=== PATIENT | female | born 1950 | race Caucasian/White ===

== ENCOUNTER 2020-07-26 19:49 | Inpatient (IN) | payer MEDICARE ==
--- NOTE | 2020-07-26 20:03 | ER Document Report ---
ED General - General Chief Complaint: Breathing Difficulty Stated Complaint: DIFFICULTY BREATHING Time Seen by Provider: 07/26/20 20:01 Mode of Arrival: Medic Information source: Emergency Med Personnel - [facility] Notes: 70-year-old female arrives via EMS for shortness of breath. Information is primarily provided by EMS given patient's respiratory status. About 6 to 8 weeks ago patient had a bronchoscopy done in [place], apparently was supposed to be a 45-minute procedure however it ended up taking 5 hours. She was discharged home that day. EMS came out to her house that night for shortness of breath and she was subsequently intubated, she was admitted to the ICU in [facility], [place]. Call tonight was for shortness of breath with minimal exertion, she was noted to have desaturations when attempting to stand. She was found to be 80% on 5 L of home O2, it is unsure how much oxygen she is supposed to be on. Had reported a cough productive of green/yellow sputum. Apparently the family does not let any visitors into the house and none of them have Covid to EMS his knowledge. EMS found her to be tachypneic, rhonchi, wheezing, minimal air movement. She was started on CPAP with 10 of PEEP, saturations increased to 92%, she was administered 2 DuoNeb's and 125 mg Solu-Medrol. - Related Data Allergies/Adverse Reactions: No Known Allergies Allergy (Unverified 07/26/20 23:53) Past Medical History - General Information source: Emergency Med Personnel - Social History Smoking Status: Unknown if Ever Smoked Family History: Other - Unable to assess at this time Review of Systems - Review of Systems -: Yes ROS unobtainable due to patient's medical condition Cardiovascular: denies: Chest pain Gastrointestinal: denies: Abdominal pain Physical Exam - Vital signs Vitals: Resp Pulse Ox 22 H 97 07/26/20 19:50 07/26/20 19:50 - General In distress: Moderate - HEENT Head: Normocephalic, Atraumatic Extraocular movements intact: Yes - Left ideation Pupils: PERRL - Respiratory Respiratory status: Labored, Tachypnea Breath sounds: Rales - Diffuse - Cardiovascular Rhythm: Regular Heart sounds: Normal auscultation Pulses: Normal: Radial, Dorsalis pedis Normal capillary refill: Yes - Abdominal Inspection: Obese Tenderness: Nontender - Extremities General lower extremity: Edema - 3+ pitting edema bilaterally - Neurological Neuro grossly intact: Yes Notes: Face is symmetric, able to raise eyebrows equally, tongue protrudes midline. Left eye deviation. Follows commands. Strength 5/5 in the upper extremities, very strong handgrip. Strength 5/5 in the lower extremities. Sensation grossly intact to all extremities. - Psychological Associated symptoms: Normal mood - Skin Skin Temperature: Warm Course - Re-evaluation Re-evalutation: 70-year-old female with history of COPD arrives via EMS for respiratory distress. She was found tachypneic and hypoxic on 5 L of oxygen, she was initiated on positive pressure with improvement in her saturations. On exam patient is still tachypneic, she has diffuse rales, respiratory at bedside has been continued on BiPAP, tolerating 14/7 with 50% FiO2, no hypoxia here. Apparently had recent bronchoscopy, patient has never been in our system before. I am highly suspicious of volume overload given her pulmonary exam and generali zed pitting edema to her lower extremities, will start with 80 mg Lasix, chest x-ray reviewed at bedside and does appear to have pulmonary edema. Less likely primary COPD exacerbation at this time, though it could be contributing, possible CO2 retention given mental status, will check VBG. 07/26/20 20:59 Received a call from radiology wanting to make sure that I read the chest x-ray report as there is concern for a left lobe mass 07/26/20 22:17 Minimal leukocytosis. Anemia, chronic appearing, no baseline available. VBG with evidence of respiratory acidosis, some compensation. Electrolytes okay, bicarb elevated. Creatinine within normal limits. BNP is elevated and a slight troponin leak, correlates with physical exam findings. No elevation of LFTs to suggest hepatic congestion. I went in to update patient. She is more alert and comfortable appearing, she reports she is feeling better. She denies a previous history of CHF. She states this left upper lobe mass is what she had the bronchoscopy poor, she reports to her knowledge she was told everything was okay. She has already had 400cc urine output in response to Lasix 07/26/20 22:32 Called transfer center at [facility], at max capacity so would not be able to take patient in transfer. We were able to review her admission there in the ICU, admitted on May 28. She was diagnosed with acute on chronic respiratory f ailure with hypoxia and hypercapnia, RON, MAT, anemia of chronic disease. She apparently only had a chest x-ray done which showed left greater than right upper lobe infiltrates. Was discharged home on 3 L nasal cannula. 07/26/20 22:39 Called in [place] in order to obtain bronchoscopy results, scheduling representative is not at his desk but will be able to do this shortly 07/26/20 23:41 Bronchoscopy report received from [place], performed on 05/27. Was done because she had a persistent left upper lung infiltrate that was not responding to antibiotics. 5 transbronchial biopsies were obtained. Per the report biopsies were negative for atypia or malignancy, negative for mycobacteria and fungal org anisms. 07/27/20 00:[address] Carlson for admission 07/27/20 00:26 pCO2 and pH have improved following BiPAP - Vital Signs Vital signs: Temp Pulse Resp BP Pulse Ox 98.0 F 17 113/83 98 07/26/20 23:51 07/27/20 00:01 07/27/20 00:00 07/27/20 00:01 - Laboratory Result Diagrams: 07/26/20 21:00 07/26/20 21:00 Laboratory results interpreted by me: 07/26/20 07/26/20 07/26/20 21:00 21:00 21:00 WBC 13.2 H RBC 3.69 L Hgb 8.8 L Hct 29.2 L MCV 79 L MCH 23.9 L MCHC 30.3 L RDW 17.6 H Seg Neuts % (Manual) 95 H Lymphocytes % (Manual) 3 L Monocytes % (Manual) 2 L Abs Neuts (Manual) 12.5 H Abs Lymphs (Manual) 0.4 L VBG pH VBG pCO2 VBG HCO3 Chloride 94 L Carbon Dioxide 38 H Est GFR (MDRD) Non-Af 49 L Glucose 151 H Phosphorus 4.6 H NT-Pro-B Natriuret Pep 2670 H 07/26/20 07/26/20 21:00 23:35 WBC RBC Hgb Hct MCV MCH MCHC RDW Seg Neuts % (Manual) Lymphocytes % (Manual) Monocytes % (Manual) Abs Neuts (Manual) Abs Lymphs (Manual) VBG pH 7.20 L 7.25 L VBG pCO2 98.1 H* 84.1 H* VBG HCO3 37.3 H 36.2 H Chloride Carbon Dioxide Est GFR (MDRD) Non-Af Glucose Phosphorus NT-Pro-B Natriuret Pep - Diagnostic Test Radiology reviewed: Image reviewed, Reports reviewed Discharge - Discharge Clinical Impression: Acute and chronic respiratory failure with hypercapnia, Chronic anemia CHF, acute Qualifiers: Heart failure type: unspecified Qualified Code(s): I50.9 - Heart failure, unspecified Disposition: ADMITTED INPATIENT Unit Admitted: [facility]
[2020-07-26] MEDS ORDERED: FUROSEMIDE INJ/PF 20 MG/2 ML SDV IV ONE (20:04)
--- NOTE | 2020-07-26 20:53 | RADIOLOGY REPORT (SQ) ---
EXAM DESCRIPTION: XR CHEST 1 VIEW COMPLETED DATE/TME: 07/26/2020 20:11 CLINICAL HISTORY: 70 years, Female, SOB COMPARISON: None. NUMBER OF VIEWS: 1 TECHNIQUE: Portable AP upright view of the chest was obtained at 8:05 PM LIMITATIONS: None. FINDINGS: Heart size is top normal for technique. There is mild pleural effusion or thickening lateral right lower chest. There is also mild basilar atelectasis or infiltration, greater on the right. Additionally, there is focal hazy attenuation in the left suprahilar region with some adjacent pleural tenting. There is no pneumothorax. No definite acute bony abnormality is seen. IMPRESSION: Right pleural fluid or thickening and mild basilar atelectasis or infiltration. There is also nonspecific opacity in the left suprahilar region with some adjacent pleural tenting which could be due to scarring although underlying mass is not excluded. Additional evaluation with chest CT is recommended. copyright 2010 [employer]- All Rights Reserved
[2020-07-26 21:17] LABS: VENOUS BLOOD BASE EXCESS 6.9 mmol/L; VENOUS BLOOD HCO3 37.3 mmol/L (20-32); VENOUS BLOOD PH 7.2 (7.30-7.42)
[2020-07-26 21:20] LABS: VENOUS BLOOD PCO2 98.1 mmHg (35-63)
[2020-07-26 21:21] LABS: HEMATOCRIT 29.2 % (36.0-47.0); HEMOGLOBIN 8.8 g/dL (12.0-15.5); MEAN CORPUSCULAR HEMOGLOBIN 23.9 pg (27.0-33.4); MEAN CORPUSCULAR HGB CONC 30.3 g/dL (32.0-36.0); MEAN CORPUSCULAR VOLUME 79 fl (80-97); PLATELET COUNT 231 10^3/uL (150-450); RED BLOOD COUNT 3.69 10^6/uL (3.72-5.28); RED CELL DISTRIBUTION WIDTH 17.6 % (11.5-14.0); WHITE BLOOD COUNT 13.2 10^3/uL (4.0-10.5)
[2020-07-26 21:30] LABS: ALBUMIN 4.2 g/dL (3.5-5.0)
[2020-07-26 21:36] LABS: ABSOLUTE LYMPHOCYTES# (MANUAL) 0.4 10^3/uL (0.5-4.7); ABSOLUTE MONOCYTES # (MANUAL) 0.3 10^3/uL (0.1-1.4); BASOPHILS % (MANUAL) 0 % (0-2); EOSINOPHILS % (MANUAL) 0 % (0-6); LYMPHOCYTES % (MANUAL) 3 % (13-45); MONOCYTES % (MANUAL) 2 % (3-13); SEGMENTED NEUTROPHILS % (MAN) 95 % (42-78); TOTAL CELLS COUNTED 100
[2020-07-26 21:39] LABS: ANISOCYTOSIS SLIGHT; HYPOCHROMASIA SLIGHT; OVALOCYTES SLIGHT; PLATELET COMMENT ADEQUATE; POIKILOCYTOSIS SLIGHT
[2020-07-26 21:45] LABS: ALKALINE PHOSPHATASE 82 U/L (38-126); ANION GAP 8 (5-19); ASPARTATE AMINO TRANSFERASE 18 U/L (14-36); BILIRUBIN,DIRECT 0.2 mg/dL (0.0-0.4); BILIRUBIN,TOTAL 0.8 mg/dL (0.2-1.3); BLOOD UREA NITROGEN 19 mg/dL (7-20); CALCIUM 9.3 mg/dL (8.4-10.2); CARBON DIOXIDE 38 mmol/L (22-30); CHLORIDE 94 mmol/L (98-107); GLUCOSE 151 mg/dL (75-110); PHOSPHORUS 4.6 mg/dL (2.5-4.5); POTASSIUM 4.6 mmol/L (3.6-5.0); TOTAL PROTEIN 6.7 g/dL (6.3-8.2); TROPONIN I 0.016 ng/mL
--- NOTE | 2020-07-26 22:55 | EKG REPORT ---
SEVERITY:- ABNORMAL ECG - SINUS TACHYCARDIA SUPRAVENTRICULAR BIGEMINY PROBABLE LEFT ATRIAL ABNORMALITY LEFT ANTERIOR FASCICULAR BLOCK BORDERLINE T ABNORMALITIES, ANT-LAT LEADS : Confirmed by: Flakito Madison 26-Jul-2020 22:54:22
[2020-07-26 22:56] LABS: APPEARANCE,URINE SLIGHTLY-CLOUDY; BILIRUBIN,URINE NEGATIVE (NEGATIVE); COLOR,URINE YELLOW; GLUCOSE, URINE NEGATIVE (NEGATIVE); KETONES,URINE NEGATIVE (NEGATIVE); LEUKOCYTE ESTERASE,URINE NEGATIVE (NEGATIVE); NITRITE,URINE NEGATIVE (NEGATIVE); PROTEIN,URINE NEGATIVE (NEGATIVE); UROBILINOGEN,URINE NEGATIVE mg/dL (<2.0)
[2020-07-27 00:02] LABS: VENOUS BLOOD BASE EXCESS 7.3 mmol/L; VENOUS BLOOD HCO3 36.2 mmol/L (20-32); VENOUS BLOOD PH 7.25 (7.30-7.42)
[2020-07-27 00:15] LABS: VENOUS BLOOD PCO2 84.1 mmHg (35-63)
--- NOTE | 2020-07-27 01:29 | PDOC H&P ---
History of Present Illness Admission Date/PCP: 07/27/20 00:41 Patient complains of: Shortness of breath History of Present Illness: SHAWN GARCÍA is a 70 year old female with a history of COPD on home oxygen and left lung mass for which she has undergone extensive work-up and was told that it was negative for malignant process now presents via EMS with a 1 day duration of worsening shortness of breath. Patient also states that she has been having cough productive of yellowish sputum for the past few days. She was found to be saturating at 80% by EMS while on 5 L intranasal oxygen. She denies chest pain, dizziness, palpitation, weakness of extremities, fall, nausea, vomiting, abdominal pain or diarrhea. She denies any recent sick contact history. On arrival at ER patient was saturating around mid 80s and she was immediately placed on BiPAP after which her saturation improved to mid 90s and she was given steroid and breathing treatment. Past Medical History Cardiac Medical History: Reports: Congestive Heart Failure Pulmonary Medical History: Reports: Chronic Obstructive Pulmonary Disease (COPD) Social History Information Source: Patient Lives with: Alone Smoking Status: Unknown if Ever Smoked Hx Recreational Drug Use: No Drugs: None - Advance Directive Resuscitation Status: Full Code Family History Family History: Other - Unable to assess at this time Parental Family History Reviewed: Yes Children Family History Reviewed: Yes Sibling(s) Family History Reviewed.: Yes Medication/Allergy Allergies/Adverse Reactions: No Known Allergies Allergy (Unverified 07/26/20 23:53) Review of Systems Constitutional: PRESENT: as per HPI, fatigue. ABSENT: anorexia, chills, fever(s), weight gain, weight loss Eyes: ABSENT: visual disturbances Ears: ABSENT: hearing changes Nose, Mouth, and Throat: ABSENT: as per HPI, headache(s), mouth pain, sore throat, vertigo, other Cardiovascular: PRESENT: as per HPI Respiratory: PRESENT: as per HPI Gastrointestinal: ABSENT: abdominal pain, constipation, diarrhea, hematemesis, hematochezia, nausea, vomiting Genitourinary: ABSENT: dysuria, hematuria Musculoskeletal: ABSENT: joint swelling Integumentary: ABSENT: rash, wounds Neurological: ABSENT: abnormal speech, confusion, dizziness, focal weakness, syncope Psychiatric: ABSENT: anxiety, depression, homidical ideation, suicidal ideation Endocrine: ABSENT: cold intolerance, heat intolerance, polydipsia, polyuria Hematologic/Lymphatic: ABSENT: easy bleeding, easy bruising Physical Exam Vital Signs: Temp Pulse Resp BP Pulse Ox 98.0 F 16 113/83 98 07/26/20 23:51 07/27/20 00:55 07/27/20 00:00 07/27/20 00:55 Additional comments: GENERAL APPEARANCE: Alert and oriented x3, currently on a BiPAP, in no distress HEENT: Normocephalic and atraumatic. No scleral icterus. NECK: Supple. No JVD CHEST: Symmetric. Nontender to palpation. LUNGS: Distantly heard breath sounds, has faint scattered wheezes bilaterally HEART: Regular rate and rhythm with normal S1 and S2. No murmurs, gallops, or rubs. ABDOMEN: Flat, soft, active bowel sounds, no direct or rebound tenderness. No organomegaly detected. No CVA tenderness EXTREMITIES: No cyanosis, clubbing, or edema. MUSCULOSKELETAL: No deformity, atrophy or swelling noted PSYCHIATRIC: The patient is awake, alert, and oriented x3. Recent and remote memory is intact. Appropriate mood and affect. SKIN: Warm, dry, and well perfused. No lesions or rashes are noted. NEUROLOGIC: No focal sensory or motor deficits are noted. Results Laboratory Results: 07/26/20 21:00 07/26/20 21:00 07/26/20 07/26/20 07/26/20 21:00 21:00 21:00 WBC 13.2 H RBC 3.69 L Hgb 8.8 L Hct 29.2 L MCV 79 L MCH 23.9 L MCHC 30.3 L RDW 17.6 H Plt Count 231 Seg Neutrophils % Not Reportable VBG pH 7.20 L VBG pCO2 98.1 H* VBG HCO3 37.3 H VBG Base Excess 6.9 Sodium 140.2 Potassium 4.6 Chloride 94 L Carbon Dioxide 38 H Anion Gap 8 BUN 19 Creatinine 1.09 Est GFR ( Amer) > 60 Glucose 151 H Calcium 9.3 Phosphorus 4.6 H Magnesium 2.3 Total Bilirubin 0.8 AST 18 Alkaline Phosphatase 82 Total Protein 6.7 Albumin 4.2 Urine Color Urine Appearance Urine pH Ur Specific [place] Urine Protein Urine Glucose (UA) Urine Ketones Urine Blood Urine Nitrite Ur Leukocyte Esterase Urine WBC (Auto) Urine RBC (Auto) 07/26/20 07/26/20 22:01 23:35 WBC RBC Hgb Hct MCV MCH MCHC RDW Plt Count Seg Neutrophils % VBG pH 7.25 L VBG pCO2 84.1 H* VBG HCO3 36.2 H VBG Base Excess 7.3 Sodium Potassium Chloride Carbon Dioxide Anion Gap BUN Creatinine Est GFR ( Amer) Glucose Calcium Phosphorus Magnesium Total Bilirubin AST Alkaline Phosphatase Total Protein Albumin Urine Color YELLOW Urine Appearance SLIGHTLY-CLOUDY Urine pH 5.0 Ur Specific [place] 1.010 Urine Protein NEGATIVE Urine Glucose (UA) NEGATIVE Urine Ketones NEGATIVE Urine Blood NEGATIVE Urine Nitrite NEGATIVE Ur Leukocyte Esterase NEGATIVE Urine WBC (Auto) 0 Urine RBC (Auto) 0 07/26/20 21:00 Troponin I 0.016 NT-Pro-B Natriuret Pep 2670 H Impressions: Chest X-Ray 07/26/20 20:01 IMPRESSION: Right pleural fluid or thickening and mild basilar atelectasis or infiltration. There is also nonspecific opacity in the left suprahilar region with some adjacent pleural tenting which could be due to scarring although underlying mass is not excluded. Additional evaluation with chest CT is recommended. copyright 2011 [employer]- All Rights Reserved Assessment and Plan - Diagnosis (1) Acute and chronic respiratory failure with hypercapnia Is this a current diagnosis for this admission?: Yes Plan: Presented with shortness of breath Was hypoxic on 5 L intranasal oxygen Likely due to COPD exacerbation VBG: pH 7.20, PCO2 98 Currently on BiPAP with a setting of: FiO2/IPAP/EPAP/RR=> 40%/08/22/14 Continue breathing treatment Started on prednisone 40 mg p.o. daily Levaquin 750 mg p.o. daily Closely monitor respiratory parameters Repeat ABG in 2 hours after initiation of BiPAP (2) COPD exacerbation Is this a current diagnosis for this admission?: Yes Plan: Currently present with shortness of breath and desaturation to 80% on 5 L Chest x-ray showed no previously known mass on the left perihilar area Has mild leukocytosis Continue breathing treatment with DuoNeb Started on prednisone 40 mg, Levaquin 750 mg daily Currently on the BiPAP and will transition to intranasal oxygen as tolerated (3) Mass of left lung Is this a current diagnosis for this admission?: Yes Plan: Has been extensively worked up Bronchoscopy report obtained ED no sign of malignancy on the biopsy Continue follow-up with outpatient pulmonology (4) Leukocytosis Is this a current diagnosis for this admission?: Yes Plan: Likely due to possible pneumonia Currently on p.o. Levaquin (5) Chronic anemia Is this a current diagnosis for this admission?: Yes Plan: Continue monitoring H&H - Time Time Spent with patient: 35 or more minutes Total Critical Time (Minutes): 40 Medications reviewed and adjusted accordingly: Yes Anticipated Discharge Disposition: Home with Home Health Anticipated Discharge Timeframe: within 48 hours - Inpatient Certification Based on my medical assessment, after consideration of the patient's comorbidities, presenting symptoms, or acuity I expect that the services needed warrant INPATIENT care.: Yes I certify that my determination is in accordance with my understanding of Medicare's requirements for reasonable and necessary INPATIENT services [42 CFR 412.3e].: Yes Medical Necessity: Significant Comorbidiites Make Outpatient Treatment Too Risky, Need Close Monitoring Due to Risk of Patient Decompensation, Risk of Complication if Not Cared For in Hospital Post Hospital Care: D/C or Transfer Summary
[2020-07-27] MEDS: LEVOFLOXACIN 750 MG TABLET PO SCH ×2 (02:29→22:32)
[2020-07-27] MEDS: PREDNISONE 20 MG TABLET PO SCH ×2 (02:29→09:42)
[2020-07-27] MEDS: IPRATROPIUM/ALBUTEROL 0.5-2.5 MG/3 ML AMPUL NEB SCH ×5 (06:50→20:17)
[2020-07-27] MEDS: FAMOTIDINE 20 MG TABLET PO SCH ×2 (09:42→22:33)
[2020-07-27] MEDS: ENOXAPARIN SODIUM INJ 40 MG/0.4 ML DISP.SYRIN SUBCUT SCH (09:42)
--- NOTE | 2020-07-27 12:27 | RADIOLOGY REPORT (SQ) ---
EXAM DESCRIPTION: CT CHEST WITH IMAGES COMPLETED DATE/TIME: 07/27/2020 10:33 am REASON FOR STUDY: lung mass on chest radiograph. No history of lung cancer. COMPARISON: Chest radiograph, 07/26/2020. TECHNIQUE: CT scan of the chest performed using helical scanning technique with dynamic intravenous contrast injection. Images reviewed with lung, soft tissue and bone windows. Reconstructed coronal and sagittal MPR and MIP images reviewed. All images stored on PACS. All CT scanners at this facility use dose modulation, iterative reconstruction, and/or weight based d osing when appropriate to reduce radiation dose to as low as reasonably achievable (ALARA). [facility]: Dose Right [facility]: CareDose [facility]: Dose Right [facility]: Teradose 4D [facility]: ISBX CONTRAST TYPE AND DOSE: contrast/concentration: Isovue 350.00 mmol/ml; Total Contrast Delivered: 76. 8 ml; Total Saline Delivered: 20.0 ml RENAL FUNCTION: GFR > 60. RADIATION DOSE: CT Rad equipment meets quality standard of care and radiation dose reduction techniq ues were employed. CTDIvol: 18.3 mGy. DLP: 785 mGy-cm. . LIMITATIONS: None. FINDINGS: LUNGS AND PLEURA: The trachea has normal caliber and appearance. There is mild bronchial wall thickening in the lower lobes bilaterally. No bronchiectasis. Background moderate pulmonary em physema. Small bilateral pleural effusions with compressive atelectasis at the lung bases. In the l eft upper lobe, there is a 4.9 x 3.4 cm masslike consolidation with associated pleural tethering and fluid in the fissure. 7 mm solid nodule right lower lobe (image 60). No pneumothorax. HILAR AND MEDIASTINAL STRUCTURES: There are enlarged mediastinal lymph nodes, for example a precarina l node measuring 1.9 x 1.3 cm. No definite hilar adenopathy. Esophagus is unremarkable. HEART AND VASCULAR STRUCTURES: No aneurysm or dissection. No central pulmonary emboli. No pericardi al effusion. Moderate coronary artery atherosclerosis. HARDWARE: None in the chest. UPPER ABDOMEN: No significant findings. Limited exam. THYROID AND OTHER SOFT TISSUES: Enlarged thyroid with substernal lobe extending along the right trach ea with a dominant 3.3 x 2.4 cm hypodense nodule. There is a surgical clip adjacent to the right thy roid lobe, possibly from previous surgical resection. No chest wall mass. BONES: No significant finding. OTHER: No other significant finding. IMPRESSION: 1. Masslike consolidation in the left upper lobe may be infectious/inflammatory in the appropriate cl inical setting, however cannot exclude neoplasm. A follow-up CT of the chest in 4- 6 weeks is recomm ended to confirm complete resolution. 2. Small bilateral pleural effusions. 3. Prominent mediastinal lymph nodes may be reactive or neoplastic. These also can be re-evaluated o n follow-up imaging. 4. Background moderate pulmonary emphysema. 5. Enlarged right thyroid lobe with retrosternal component. Dominant retrosternal nodule. Consider correlation with dedicated thyroid ultrasound. TECHNICAL DOCUMENTATION: JOB ID: [id number] Quality ID # [id number]: Final reports with documentation of one or more dose reduction techniques (e.g., Au tomated exposure control, adjustment of the mA and/or kV according to patient size, use of iterative reconstruction technique) 2010 [employer]- All Rights Reserved Reading location - IP/workstation name: [email or web address]
[2020-07-27] MEDS: HYDRALAZINE HCL 25 MG TABLET PO SCH ×2 (15:20→22:33)
[2020-07-27] MEDS ORDERED: (PENDING PHARMACY ID) (Budesonide/Formoterol Fumarate 1 PUFF) IH SCH (18:00)
--- NOTE | 2020-07-27 21:07 | PDOC PROGRESS REPORT ---
Subjective Date:: 07/27/20 Subjective:: SHAWN GARCÍA is a 70 year old female with a history of COPD on home oxygen and left lung mass for which she has undergone extensive work-up and was told that it was negative for malignant process now presents via EMS with a 1 day duration of worsening shortness of breath. Patient also states that she has been having cough productive of yellowish sputum for the past few days. She was found to be saturating at 80% by EMS while on 5 L intranasal oxygen. She denies chest pain, dizziness, palpitation, weakness of extremities, fall, nausea, vomiting, abdominal pain or diarrhea. She denies any recent sick contact history. On arrival at ER patient was saturating around mid 80s and she was immediately placed on BiPAP after which her saturation improved to mid 90s and she was given steroid and breathing treatment. 07/27/20 Patient was seen and examined at bedside. She was taken off BiPAP and is tolerating just being on nasal cannula at 4 L/min saturating 96%. I have instructed the nurse to lower down her oxygen to maintain saturation been 89 to 92%. Nurse station was contacted by her surveyor hydrographic office and requested that we do a CT chest. CT chest showed masslike consolidation in the left upper lobe which may be infectious. Cannot exclude neoplasm. Small bilateral pleural effusion. Prominent mediastinal lymph nodes may be reactive or neoplastic. He is currently receiving prednisone 40 p.o. daily, Levaqjuliana [place] for COPD exacerbation. Reason For Visit: ACUTE ON CHRONIC HYPOXIC AND HYPERCAPNIC RESPIRATO Physical Exam Vital Signs: Temp Pulse Resp BP Pulse Ox 97.9 F 104 H 22 H 132/71 H 99 07/27/20 19:34 07/27/20 19:34 07/27/20 19:34 07/27/20 19:34 07/27/20 19:34 Intake & Output 07/26/20 07/27/20 07/28/20 06:59 06:59 06:59 Output Total 2225 700 Balance -2225 -700 Weight 117.2 kg General appearance: PRESENT: cooperative, mild distress Head exam: PRESENT: atraumatic, normocephalic Eye exam: PRESENT: EOMI, PERRLA Mouth exam: PRESENT: moist Neck exam: PRESENT: full ROM Respiratory exam: PRESENT: decreased breath sounds, symmetrical, unlabored Cardiovascular exam: PRESENT: RRR, +S1, +S2 Pulses: PRESENT: normal radial pulses GI/Abdominal exam: PRESENT: normal bowel sounds, soft. ABSENT: rebound, tenderness Extremities exam: PRESENT: full ROM Musculoskeletal exam: PRESENT: full ROM Neurological exam: PRESENT: alert, awake, oriented to person, oriented to place Psychiatric exam: PRESENT: normal mood Skin exam: PRESENT: normal color Results Laboratory Results: 07/26/20 21:00 07/26/20 21:00 07/26/20 07/26/20 07/26/20 21:00 21:00 21:00 WBC 13.2 H RBC 3.69 L Hgb 8.8 L Hct 29.2 L MCV 79 L MCH 23.9 L MCHC 30.3 L RDW 17.6 H Plt Count 231 Seg Neutrophils % Not Reportable VBG pH 7.20 L VBG pCO2 98.1 H* VBG HCO3 37.3 H VBG Base Excess 6.9 Sodium 140.2 Potassium 4.6 Chloride 94 L Carbon Dioxide 38 H Anion Gap 8 BUN 19 Creatinine 1.09 Est GFR ( Amer) > 60 Glucose 151 H Calcium 9.3 Phosphorus 4.6 H Magnesium 2.3 Total Bilirubin 0.8 AST 18 Alkaline Phosphatase 82 Total Protein 6.7 Albumin 4.2 Urine Color Urine Appearance Urine pH Ur Specific [place] Urine Protein Urine Glucose (UA) Urine Ketones Urine Blood Urine Nitrite Ur Leukocyte Esterase Urine WBC (Auto) Urine RBC (Auto) 07/26/20 07/26/20 22:01 23:35 WBC RBC Hgb Hct MCV MCH MCHC RDW Plt Count Seg Neutrophils % VBG pH 7.25 L VBG pCO2 84.1 H* VBG HCO3 36.2 H VBG Base Excess 7.3 Sodium Potassium Chloride Carbon Dioxide Anion Gap BUN Creatinine Est GFR ( Amer) Glucose Calcium Phosphorus Magnesium Total Bilirubin AST Alkaline Phosphatase Total Protein Albumin Urine Color YELLOW Urine Appearance SLIGHTLY-CLOUDY Urine pH 5.0 Ur Specific [place] 1.010 Urine Protein NEGATIVE Urine Glucose (UA) NEGATIVE Urine Ketones NEGATIVE Urine Blood NEGATIVE Urine Nitrite NEGATIVE Ur Leukocyte Esterase NEGATIVE Urine WBC (Auto) 0 Urine RBC (Auto) 0 07/26/20 21:00 Troponin I 0.016 NT-Pro-B Natriuret Pep 2670 H Impressions: Chest X-Ray 07/26/20 20:01 IMPRESSION: Right pleural fluid or thickening and mild basilar atelectasis or infiltration. There is also nonspecific opacity in the left suprahilar region with some adjacent pleural tenting which could be due to scarring although underlying mass is not excluded. Additional evaluation with chest CT is recommended. copyright 2011 [employer]- All Rights Reserved Chest CT 07/27/20 00:00 IMPRESSION: 1. Masslike consolidation in the left upper lobe may be infectious/inflammatory in the appropriate clinical setting, however cannot exclude neoplasm. A follow- up CT of the chest in 4- 6 weeks is recommended to confirm complete resolution. 2. Small bilateral pleural effusions. 3. Prominent mediastinal lymph nodes may be reactive or neoplastic. These also can be re-evaluated on follow-up imaging. 4. Background moderate pulmonary emphysema. 5. Enlarged right thyroid lobe with retrosternal component. Dominant retrosternal nodule. Consider correlation with dedicated thyroid ultrasound. Assessment and Plan - Diagnosis (1) Acute and chronic respiratory failure with hypercapnia Is this a current diagnosis for this admission?: Yes Plan: Presented with shortness of breath Was hypoxic on 5 L intranasal oxygen Likely due to COPD exacerbation Currently on BiPAP with a setting of: FiO2/IPAP/EPAP/RR=> 40%/08/22/14 Continue DuoNeb on prednisone 40 mg p.o. daily to complete 5 days Levaquin 750 mg p.o. daily Closely monitor respiratory parameters Continue BiPAP at night and as needed (3) COPD exacerbation Is this a current diagnosis for this admission?: Yes Plan: Currently present with shortness of breath and desaturation to 80% on 5 L Chest x-ray showed no previously known mass on the left perihilar area Has mild leukocytosis Continue breathing treatment with DuoNeb Started on prednisone 40 mg, Levaquin 750 mg daily Currently on the BiPAP and will transition to intranasal oxygen as tolerated (4) Chronic anemia Is this a current diagnosis for this admission?: Yes Plan: Continue monitoring H&H (5) Mass of left lung Is this a current diagnosis for this admission?: Yes Plan: Has been extensively worked up Bronchoscopy report obtained ED no sign of malignancy on the biopsy Repeat CT chest masslike consolidation in the upper lobe infectio us/inflammatory, small bilateral pleural effusion, prominent mediastinal lymph nodes may be reactive or neoplastic Continue follow-up with outpatient pulmonology - Time Time Spent with patient: 25-34 minutes Medications reviewed and adjusted accordingly: Yes Anticipated Discharge Disposition: Home, Self Care Anticipated Discharge Timeframe: within 48 hours
[2020-07-27] MEDS ORDERED: LORAZEPAM INJ 2 MG/1 ML VIAL IV ONE (22:45)
[2020-07-28] MEDS: IPRATROPIUM/ALBUTEROL 0.5-2.5 MG/3 ML AMPUL NEB SCH ×3 (00:13→09:01)
[2020-07-28 06:51] LABS: ARTERIAL BLOOD BASE EXCESS 12.9 mmol/L; ARTERIAL BLOOD HCO3 40.6 mmol/L (20-24); ARTERIAL BLOOD PH 7.38 (7.35-7.45); ARTERIAL BLOOD PO2 163.2 mmHg (80-100); ARTERIAL BLOOD TOTAL CO2 42.8 mmol/L (21-25)
[2020-07-28 06:52] LABS: ARTERIAL BLOOD FIO2 40%
[2020-07-28 06:53] LABS: ARTERIAL BLOOD PCO2 69.9 mmHg (35-45)
[2020-07-28 07:16] LABS: ABSOLUTE LYMPHOCYTES (AUTO) 0.6 10^3/uL (0.5-4.7); ABSOLUTE MONOCYTES (AUTO) 0.9 10^3/uL (0.1-1.4); ABSOLUTE NEUT (AUTO) 7.9 10^3/uL (1.7-8.2); BASOPHILS % (AUTO) 0.1 % (0-2); EOSINOPHILS % (AUTO) 0.1 % (0-6); HEMATOCRIT 24.8 % (36.0-47.0); HEMOGLOBIN 8.1 g/dL (12.0-15.5); LYMPHOCYTES % (AUTO) 6.2 % (13-45); MEAN CORPUSCULAR HEMOGLOBIN 24.8 pg (27.0-33.4); MEAN CORPUSCULAR HGB CONC 32.8 g/dL (32.0-36.0); MEAN CORPUSCULAR VOLUME 76 fl (80-97); MONOCYTES % (AUTO) 9.7 % (3-13); PLATELET COUNT 211 10^3/uL (150-450); RED BLOOD COUNT 3.28 10^6/uL (3.72-5.28); RED CELL DISTRIBUTION WIDTH 17.2 % (11.5-14.0); SEGMENTED NEUTROPHILS % (AUTO) 83.9 % (42-78); TOTAL CELLS COUNTED % (AUTO) 100 %; WHITE BLOOD COUNT 9.4 10^3/uL (4.0-10.5)
[2020-07-28 07:38] LABS: ALBUMIN 3.5 g/dL (3.5-5.0); ALKALINE PHOSPHATASE 65 U/L (38-126); ASPARTATE AMINO TRANSFERASE 21 U/L (14-36); BILIRUBIN,DIRECT 0.3 mg/dL (0.0-0.4); BILIRUBIN,TOTAL 0.6 mg/dL (0.2-1.3); BLOOD UREA NITROGEN 28 mg/dL (7-20); CALCIUM 9.2 mg/dL (8.4-10.2); CHLORIDE 91 mmol/L (98-107); GLUCOSE 98 mg/dL (75-110); POTASSIUM 4.7 mmol/L (3.6-5.0); TOTAL PROTEIN 5.7 g/dL (6.3-8.2)
[2020-07-28 07:44] LABS: ANION GAP 10 (5-19); CARBON DIOXIDE 35 mmol/L (22-30)
[2020-07-28] MEDS: ESCITALOPRAM OXALATE 10 MG TABLET PO SCH (09:30)
[2020-07-28] MEDS: POTASSIUM CHLORIDE 10 MEQ TABLET.ER PO SCH (09:31)
[2020-07-28] MEDS: MONTELUKAST SODIUM 10 MG TABLET PO SCH (09:31)
[2020-07-28] MEDS: PREDNISONE 20 MG TABLET PO SCH (09:31)
[2020-07-28] MEDS: FUROSEMIDE 20 MG TABLET PO SCH (09:31)
[2020-07-28] MEDS: ENOXAPARIN SODIUM INJ 40 MG/0.4 ML DISP.SYRIN SUBCUT SCH (09:31)
[2020-07-28] MEDS: FAMOTIDINE 20 MG TABLET PO SCH ×2 (09:31→22:17)
[2020-07-28] MEDS: HYDRALAZINE HCL 25 MG TABLET PO SCH ×2 (09:31→22:17)
[2020-07-28] MEDS: FLUTICASONE/VILANTEROL 100-25 MCG/DOSE IH SCH (09:32)
[2020-07-28] MEDS: UMECLIDINIUM BROMIDE 62.5 MCG/DOSE IH SCH (09:32)
[2020-07-28] MEDS ORDERED: (PENDING PHARMACY ID) (Tiotropium Bromide [Spiriva Handihaler 5 Cap/Kit (18 Mcg/Cap)] 1 CA IH SCH (10:00)
[2020-07-28] MEDS: IPRATROPIUM/ALBUTEROL 0.5-2.5 MG/3 ML AMPUL NEB PRN (13:16)
--- NOTE | 2020-07-28 16:39 | PDOC PROGRESS REPORT ---
Subjective Date:: 07/28/20 Subjective:: SHAWN GARCÍA is a 70 year old female with a history of COPD on home oxygen and left lung mass for which she has undergone extensive work-up and was told that it was negative for malignant process now presents via EMS with a 1 day duration of worsening shortness of breath. Patient also states that she has been having cough productive of yellowish sputum for the past few days. She was found to be saturating at 80% by EMS while on 5 L intranasal oxygen. She denies chest pain, dizziness, palpitation, weakness of extremities, fall, nausea, vomiting, abdominal pain or diarrhea. She denies any recent sick contact history. On arrival at ER patient was saturating around mid 80s and she was immediately placed on BiPAP after which her saturation improved to mid 90s and she was given steroid and breathing treatment. 07/27/20 Patient was seen and examined at bedside. She was taken off BiPAP and is tolerating just being on nasal cannula at 4 L/min saturating 96%. I have instructed the nurse to lower down her oxygen to maintain saturation been 89 to 92%. Nurse station was contacted by her applications sales representative office and requested that we do a CT chest. CT chest showed masslike consolidation in the left upper lobe which may be infectious. Cannot exclude neoplasm. Small bilateral pleural effusion. Prominent mediastinal lymph nodes may be reactive or neoplastic. He is currently receiving prednisone 40 p.o. daily, Levaquin, duo nebs for COPD exacerbation. 07/28/20 Patient was seen and examined at bedside. She is mostly off BiPAP only using it at night. She reports that her breathing is much better today compared to yesterday. She is exhibiting side effects of DuoNeb nebulization so I have change it to as needed. She denies any fever chest pain palpitations. I have spoken to her niece Praveen regarding her frequent admissions due to respiratory compromise from her COPD as well as her lung mass. According to her niece the applications sales representative was still highly suspicious that her lung mass is cancerous despite a negative biopsy. However given her very poor lung function due to her COPD they were told that another biopsy and even treatment if it is in fact cancer will be more harmful than helpful in her case. I was able to discuss with her as well that given her degree of morbidity it is very likely that pursuing treatment for a lung cancer will not be beneficial. Jacqueline informed me that apparently the patient's is very reluctant to accept her life limiting illness which is why I think a palliative consult will be very helpful in her case. I have put in a consult for palliative. Reason For Visit: ACUTE ON CHRONIC HYPOXIC AND HYPERCAPNIC RESPIRATO Physical Exam Vital Signs: Temp Pulse Resp BP Pulse Ox 97.9 F 106 H 18 153/71 H 99 07/28/20 12:57 07/28/20 14:00 07/28/20 13:10 07/28/20 12:57 07/28/20 13:10 Intake & Output 07/27/20 07/28/20 07/29/20 06:59 06:59 06:59 Output Total 2225 1025 Balance -2225 -1025 Weight 117.2 kg 124.2 kg General appearance: PRESENT: cooperative, mild distress, obese Head exam: PRESENT: atraumatic, normocephalic Eye exam: PRESENT: EOMI, PERRLA Mouth exam: PRESENT: moist Neck exam: PRESENT: full ROM Respiratory exam: PRESENT: decreased breath sounds, symmetrical, tachypnea, wheezes Cardiovascular exam: PRESENT: RRR, +S1, +S2 Pulses: PRESENT: normal radial pulses GI/Abdominal exam: PRESENT: normal bowel sounds, soft. ABSENT: rebound, tende rness Extremities exam: PRESENT: full ROM Musculoskeletal exam: PRESENT: full ROM Neurological exam: PRESENT: alert, awake, oriented to person, oriented to place, oriented to time Psychiatric exam: PRESENT: normal mood Skin exam: PRESENT: normal color Results Laboratory Results: 07/28/20 06:41 07/28/20 06:41 07/28/20 07/28/20 07/28/20 06:15 06:41 06:41 WBC 9.4 RBC 3.28 L Hgb 8.1 L Hct 24.8 L MCV 76 L MCH 24.8 L MCHC 32.8 RDW 17.2 H Plt Count 211 Seg Neutrophils % 83.9 H Carbonic Acid 2.10 H HCO3/H2CO3 Ratio 19:1 ABG pH 7.38 ABG pCO2 69.9 H* ABG pO2 163.2 H ABG HCO3 40.6 H ABG O2 Saturation 99.0 H ABG Base Excess 12.9 FiO2 40% Sodium 136.2 L Potassium 4.7 Chloride 91 L Carbon Dioxide 35 H Anion Gap 10 BUN 28 H Creatinine 1.12 Est GFR ( Amer) 58 L Glucose 98 Calcium 9.2 Total Bilirubin 0.6 AST 21 Alkaline Phosphatase 65 Total Protein 5.7 L Albumin 3.5 07/26/20 21:00 Troponin I 0.016 NT-Pro-B Natriuret Pep 2670 H Impressions: Chest X-Ray 07/26/20 20:01 IMPRESSION: Right pleural fluid or thickening and mild basilar atelectasis or infiltration. There is also nonspecific opacity in the left suprahilar region with some adjacent pleural tenting which could be due to scarring although underlying mass is not excluded. Additional evaluation with chest CT is recommended. copyright 2010 [employer]- All Rights Reserved Chest CT 07/27/20 00:00 IMPRESSION: 1. Masslike consolidation in the left upper lobe may be infectious/inflammatory in the appropriate clinical setting, however cannot exclude neoplasm. A follow-up CT of the chest in 4- 6 weeks is recommended to confirm complete resolution. 2. Small bilateral pleural effusions. 3. Prominent mediastinal lymph nodes may be reactive or neoplastic. These also can be re-evaluated on follow-up imaging. 4. Background moderate pulmonary emphysema. 5. Enlarged right thyroid lobe with retrosternal component. Dominant retrosternal nodule. Consider correlation with dedicated thyroid ultrasound. Assessment and Plan - Diagnosis (1) Acute and chronic respiratory failure with hypercapnia Is this a current diagnosis for this admission?: Yes Plan: Presented with shortness of breath Was hypoxic on 5 L intranasal oxygen Likely due to COPD exacerbation Currently on BiPAP with a setting of: FiO2/IPAP/EPAP/RR=> 40%/08/22/14 Continue DuoNeb on prednisone 40 mg p.o. daily to complete 5 days Levaquin 750 mg p.o. daily Closely monitor respiratory parameters Continue BiPAP at night and as needed. Will very likely be discharged tomorrow given that her symptoms have greatly improved. The patient has a trilogy machine at home and according to her niece someone from the company will, in and set up the machine for them. (2) COPD exacerbation Is this a current diagnosis for this admission?: Yes (3) COPD (chronic obstructive pulmonary disease) Qualifiers: COPD type: COPD with acute exacerbation Qualified Code(s): J44.1 - Chronic obstructive pulmonary disease with (acute) exacerbation Is this a current diagnosis for this admission?: Yes Plan: -She has been hospitalized several times in the past few months due to acute respiratory failure -On chronic O2 support at home 2 to 4 L -COPD Gold classification D - continue inhalers and Bipap at home - (4) Chronic anemia Is this a current diagnosis for this admission?: Yes Plan: Continue monitoring H&H (5) Mass of left lung Is this a current diagnosis for this admission?: Yes Plan: Has been extensively worked up Bronchoscopy report obtained ED no sign of malignancy on the biopsy Repeat CT chest masslike consolidation in the upper lobe infectious/inflammatory, small bilateral pleural effusion, prominent mediastinal lymph nodes may be reactive or neoplastic According to her niece they were told by her applications sales representative that Lissy that despite the negative biopsy the applications sales representative is still highly suspicious that her lung mass is cancerous. However they were told that given her severe COPD i t is very likely that she will ever be a candidate for any type of surgery or treatment. The niece agrees that a palliative consult will be very helpful. Continue follow-up with outpatient pulmonology - Time Time Spent with patient: 25-34 minutes Anticipated Discharge Disposition: Home with Home Health Anticipated Discharge Timeframe: to be determined
[2020-07-28] MEDS: LEVOFLOXACIN 750 MG TABLET PO SCH (22:17)
[2020-07-29 06:32] LABS: ALBUMIN 3.3 g/dL (3.5-5.0); ALKALINE PHOSPHATASE 58 U/L (38-126); ASPARTATE AMINO TRANSFERASE 21 U/L (14-36); BILIRUBIN,DIRECT 0.1 mg/dL (0.0-0.4); BILIRUBIN,TOTAL 0.4 mg/dL (0.2-1.3); BLOOD UREA NITROGEN 29 mg/dL (7-20); CALCIUM 9.1 mg/dL (8.4-10.2); CHLORIDE 92 mmol/L (98-107); GLUCOSE 97 mg/dL (75-110); POTASSIUM 4.6 mmol/L (3.6-5.0); TOTAL PROTEIN 5.7 g/dL (6.3-8.2)
[2020-07-29 06:40] LABS: ANION GAP 9 (5-19)
[2020-07-29 06:45] LABS: CARBON DIOXIDE 38 mmol/L (22-30)
[2020-07-29] MEDS ORDERED: RINGERS SOLUTION,LACTATED 500 ML IV ONE (08:00)
[2020-07-29 08:45] LABS: ABSOLUTE LYMPHOCYTES (AUTO) 0.9 10^3/uL (0.5-4.7); ABSOLUTE NEUT (AUTO) 6.7 10^3/uL (1.7-8.2); BASOPHILS % (AUTO) 0.3 % (0-2); EOSINOPHILS % (AUTO) 0.1 % (0-6); HEMATOCRIT 25.1 % (36.0-47.0); MEAN CORPUSCULAR HEMOGLOBIN 24.5 pg (27.0-33.4); MEAN CORPUSCULAR HGB CONC 31.8 g/dL (32.0-36.0); MEAN CORPUSCULAR VOLUME 77 fl (80-97); MONOCYTES % (AUTO) 11.8 % (3-13); PLATELET COUNT 211 10^3/uL (150-450); RED BLOOD COUNT 3.26 10^6/uL (3.72-5.28); SEGMENTED NEUTROPHILS % (AUTO) 77.8 % (42-78); TOTAL CELLS COUNTED % (AUTO) 100 %; WHITE BLOOD COUNT 8.6 10^3/uL (4.0-10.5)
[2020-07-29] MEDS: PREDNISONE 20 MG TABLET PO SCH (09:09)
[2020-07-29] MEDS: FUROSEMIDE 20 MG TABLET PO SCH (09:09)
[2020-07-29] MEDS: ESCITALOPRAM OXALATE 10 MG TABLET PO SCH (09:09)
[2020-07-29] MEDS: MONTELUKAST SODIUM 10 MG TABLET PO SCH (09:09)
[2020-07-29] MEDS: POTASSIUM CHLORIDE 10 MEQ TABLET.ER PO SCH (09:09)
[2020-07-29] MEDS: ENOXAPARIN SODIUM INJ 40 MG/0.4 ML DISP.SYRIN SUBCUT SCH (09:09)
[2020-07-29] MEDS: HYDRALAZINE HCL 25 MG TABLET PO SCH ×2 (09:09→21:31)
[2020-07-29] MEDS: FAMOTIDINE 20 MG TABLET PO SCH ×2 (09:09→21:30)
[2020-07-29] MEDS: FLUTICASONE/VILANTEROL 100-25 MCG/DOSE IH SCH (09:10)
[2020-07-29] MEDS: UMECLIDINIUM BROMIDE 62.5 MCG/DOSE IH SCH (09:10)
[2020-07-29] MEDS ORDERED: IRON SUCROSE COMPLEX INJ/PF 100 MG/5 ML SDV IV ONE (11:45)
--- NOTE | 2020-07-29 18:11 | PDOC PROGRESS REPORT ---
Subjective Date:: 07/29/20 Subjective:: SHAWN GARCÍA is a 70 year old female with a history of COPD on home oxygen and left lung mass for which she has undergone extensive work-up and was told that it was negative for malignant process now presents via EMS with a 1 day duration of worsening shortness of breath. Patient also states that she has been having cough productive of yellowish sputum for the past few days. She was found to be saturating at 80% by EMS while on 5 L intranasal oxygen. She denies chest pain, dizziness, palpitation, weakness of extremities, fall, nausea, vomiting, abdominal pain or diarrhea. She denies any recent sick contact history. On arrival at ER patient was saturating around mid 80s and she was immediately placed on BiPAP after which her saturation improved to mid 90s and she was given steroid and breathing treatment. 07/27/20 Patient was seen and examined at bedside. She was taken off BiPAP and is tolerating just being on nasal cannula at 4 L/min saturating 96%. I have instructed the nurse to lower down her oxygen to maintain saturation been 89 to 92%. Nurse station was contacted by her helminthologist office and requested that we do a CT chest. CT chest showed masslike consolidation in the left upper lobe which may be infectious. Cannot exclude neoplasm. Small bilateral pleural effusion. Prominent mediastinal lymph nodes may be reactive or neoplastic. He is currently receiving prednisone 40 p.o. daily, Levaquin, duo nebs for COPD exacerbation. 07/28/20 Patient was seen and examined at bedside. She is mostly off BiPAP only using it at night. She reports that her breathing is much better today compared to yesterday. She is exhibiting side effects of DuoNeb nebulization so I have change it to as needed. She denies any fever chest pain palpitations. I have spoken to her niece Praveen regarding her frequent admissions due to respiratory compromise from her COPD as well as her lung mass. According to her niece the helminthologist was still highly suspicious that her lung mass is cancerous despite a negative biopsy. However given her very poor lung function due to her COPD they were told that another biopsy and even treatment if it is in fact cancer will be more harmful than helpful in her case. I was able to discuss with her as well that given her degree of morbidity it is very likely that pursuing treatment for a lung cancer will not be beneficial. Jacqueline informed me that apparently the patient's is very reluctant to accept her life limiting illness which is why I think a palliative consult will be very helpful in her case. I have put in a consult for palliative. 07/29/20 Patient was seen and examined at bedside. She reports breathing much better when in bed but gets very SOB when she ambulates. She denies any chest pain, no palpitations. Appetite is good. I ordered physical therapy as she is very deconditioned. Genao catheter pulled out today. Reason For Visit: ACUTE ON CHRONIC HYPOXIC AND HYPERCAPNIC RESPIRATO Physical Exam Vital Signs: Temp Pulse Resp BP Pulse Ox 97.8 F 107 H 18 166/76 H 97 07/29/20 15:07 07/29/20 15:07 07/29/20 15:07 07/29/20 15:07 07/29/20 15:07 Intake & Output 07/28/20 07/29/20 07/30/20 06:59 06:59 06:59 Intake Total 340 1205 Output Total 1025 1000 400 Balance -1025 -660 805 Weight 124.2 kg 119.2 kg General appearance: PRESENT: cooperative, mild distress Head exam: PRESENT: atraumatic, normocephalic Eye exam: PRESENT: EOMI, PERRLA Mouth exam: PRESENT: moist Neck exam: PRESENT: full ROM Respiratory exam: PRESENT: crackles, symmetrical, unlabored Cardiovascular exam: PRESENT: RRR, +S1, +S2 Pulses: PRESENT: +2 pedal pulses bilateral GI/Abdominal exam: PRESENT: normal bowel sounds, soft. ABSENT: rebound, tenderness Extremities exam: PRESENT: full ROM, +2 edema Musculoskeletal exam: PRESENT: full ROM Neurological exam: PRESENT: alert, awake, oriented to person, oriented to place, oriented to time, oriented to situation Psychiatric exam: PRESENT: normal mood Skin exam: PRESENT: normal color Results Laboratory Results: 07/29/20 05:32 07/29/20 05:32 07/29/20 07/29/20 05:32 05:32 WBC 8.6 RBC 3.26 L Hgb 8.0 L Hct 25.1 L MCV 77 L MCH 24.5 L MCHC 31.8 L RDW 17.0 H Plt Count 211 Seg Neutrophils % 77.8 Sodium 138.7 Potassium 4.6 Chloride 92 L Carbon Dioxide 38 H Anion Gap 9 BUN 29 H Creatinine 1.27 H Est GFR ( Amer) 50 L Glucose 97 Calcium 9.1 Total Bilirubin 0.4 AST 21 Alkaline Phosphatase 58 Total Protein 5.7 L Albumin 3.3 L 07/26/20 21:00 Troponin I 0.016 NT-Pro-B Natriuret Pep 2670 H Impressions: Chest X-Ray 07/26/20 20:01 IMPRESSION: Right pleural fluid or thickening and mild basilar atelectasis or infiltration. There is also nonspecific opacity in the left suprahilar region with some adjacent pleural tenting which could be due to scarring although underlying mass is not excluded. Additional evaluation with chest CT is recommended. copyright 2011 [employer]- All Rights Reserved Chest CT 07/27/20 00:00 IMPRESSION: 1. Masslike consolidation in the left upper lobe may be infectious/inflammatory in the appropriate clinical setting, however cannot exclude neoplasm. A follow- up CT of the chest in 4- 6 weeks is recommended to confirm complete resolution. 2. Small bilateral pleural effusions. 3. Prominent mediastinal lymph nodes may be reactive or neoplastic. These also can be re-evaluated on follow-up imaging. 4. Background moderate pulmonary emphysema. 5. Enlarged right thyroid lobe with retrosternal component. Dominant retrosternal nodule. Consider correlation with dedicated thyroid ultrasound. Assessment and Plan - Diagnosis (1) Acute and chronic respiratory failure with hypercapnia Is this a current diagnosis for this admission?: Yes Plan: Presented with shortness of breath Was hypoxic on 5 L intranasal oxygen Likely due to COPD exacerbation Currently on BiPAP with a setting of: FiO2/IPAP/EPAP/RR=> 40%/08/22/14 Continue DuoNeb on prednisone 40 mg p.o. daily to complete 5 days Levaquin 750 mg p.o. daily Closely monitor respiratory parameters Continue BiPAP at night and as needed. (2) COPD exacerbation Is this a current diagnosis for this admission?: Yes Plan: Currently present with shortness of breath and desaturation to 80% on 5 L Chest x-ray showed no previously known mass on the left perihilar area Has mild leukocytosis Continue breathing treatment with DuoNeb Started on prednisone 40 mg, Levaquin 750 mg daily Currently on the BiPAP and will transition to intranasal oxygen as tolerated (3) COPD (chronic obstructive pulmonary disease) Qualifiers: COPD type: COPD with acute exacerbation Qualified Code(s): J44.1 - Chronic obstructive pulmonary disease with (acute) exacerbation Is this a current diagnosis for this admission?: Yes Plan: -She has been hospitalized several times in the past few months due to acute respiratory failure -On chronic O2 support at home 2 to 4 L -COPD Gold classification D - continue inhalers and Bipap at home - (4) Chronic anemia Is this a current diagnosis for this admission?: Yes Plan: - 8.8>8.0 - Continue monitoring H&H (5) Mass of left lung Is this a current diagnosis for this admission?: Yes Plan: Has been extensively worked up Bronchoscopy report obtained ED no sign of malignancy on the biopsy Repeat CT chest masslike consolidation in the upper lobe infectious/infl ammatory, small bilateral pleural effusion, prominent mediastinal lymph nodes may be reactive or neoplastic According to her niece they were told by her helminthologist that despite the negative biopsy the helminthologist is still highly suspicious that her lung mass is cancerous. However they were told that given her severe COPD it is very likely that she will ever be a candidate for any type of surgery or treatment. The niece agrees that a palliative consult will be very helpful. Continue follow-up with outpatient pulmonology (6) Physical deconditioning Is this a current diagnosis for this admission?: Yes Plan: - PT ordered - Time Time Spent with patient: 25-34 minutes Medications reviewed and adjusted accordingly: Yes Anticipated Discharge Disposition: Home with Home Health Anticipated Discharge Timeframe: within 48 hours
[2020-07-29] MEDS: IPRATROPIUM/ALBUTEROL 0.5-2.5 MG/3 ML AMPUL NEB PRN (20:01)
[2020-07-29] MEDS: LEVOFLOXACIN 750 MG TABLET PO SCH (21:30)
[2020-07-30] MEDS: ACETAMINOPHEN 325 MG TABLET PO PRN ×2 (05:35→18:07)
[2020-07-30 07:42] LABS: ALBUMIN 3.3 g/dL (3.5-5.0); ALKALINE PHOSPHATASE 56 U/L (38-126); ASPARTATE AMINO TRANSFERASE 18 U/L (14-36); BILIRUBIN,DIRECT 0.3 mg/dL (0.0-0.4); BILIRUBIN,TOTAL 0.5 mg/dL (0.2-1.3); BLOOD UREA NITROGEN 30 mg/dL (7-20); CHLORIDE 90 mmol/L (98-107); GLUCOSE 83 mg/dL (75-110); POTASSIUM 4.6 mmol/L (3.6-5.0); TOTAL PROTEIN 5.7 g/dL (6.3-8.2)
[2020-07-30 08:02] LABS: ANION GAP 9 (5-19)
[2020-07-30 08:11] LABS: CARBON DIOXIDE 40 mmol/L (22-30)
[2020-07-30] MEDS: FAMOTIDINE 20 MG TABLET PO SCH ×2 (09:27→21:14)
[2020-07-30] MEDS: MONTELUKAST SODIUM 10 MG TABLET PO SCH (09:27)
[2020-07-30] MEDS: FUROSEMIDE 20 MG TABLET PO SCH (09:27)
[2020-07-30] MEDS: PREDNISONE 20 MG TABLET PO SCH (09:27)
[2020-07-30] MEDS: FLUTICASONE/VILANTEROL 100-25 MCG/DOSE IH SCH (09:28)
[2020-07-30] MEDS: HYDRALAZINE HCL 25 MG TABLET PO SCH ×2 (09:28→21:14)
[2020-07-30] MEDS: POTASSIUM CHLORIDE 10 MEQ TABLET.ER PO SCH (09:28)
[2020-07-30] MEDS: UMECLIDINIUM BROMIDE 62.5 MCG/DOSE IH SCH (09:28)
[2020-07-30] MEDS: ENOXAPARIN SODIUM INJ 40 MG/0.4 ML DISP.SYRIN SUBCUT SCH (09:28)
[2020-07-30] MEDS: ESCITALOPRAM OXALATE 10 MG TABLET PO SCH (09:28)
--- NOTE | 2020-07-30 20:48 | PDOC PROGRESS REPORT ---
Subjective Date:: 07/30/20 Subjective:: SHAWN GARCÍA is a 70 year old female with a history of COPD on home oxygen and left lung mass for which she has undergone extensive work-up and was told that it was negative for malignant process now presents via EMS with a 1 day duration of worsening shortness of breath. Patient also states that she has been having cough productive of yellowish sputum for the past few days. She was found to be saturating at 80% by EMS while on 5 L intranasal oxygen. She denies chest pain, dizziness, palpitation, weakness of extremities, fall, nausea, vomiting, abdominal pain or diarrhea. She denies any recent sick contact history. On arrival at ER patient was saturating around mid 80s and she was immediately placed on BiPAP after which her saturation improved to mid 90s and she was given steroid and breathing treatment. 07/27/20 Patient was seen and examined at bedside. She was taken off BiPAP and is tolerating just being on nasal cannula at 4 L/min saturating 96%. I have instructed the nurse to lower down her oxygen to maintain saturation been 89 to 92%. Nurse station was contacted by her slunk skin curer office and requested that we do a CT chest. CT chest showed masslike consolidation in the left upper lobe which may be infectious. Cannot exclude neoplasm. Small bilateral pleural effusion. Prominent mediastinal lymph nodes may be reactive or neoplastic. He is currently receiving prednisone 40 p.o. daily, Levaquin, duo nebs for COPD exacerbation. 07/28/20 Patient was seen and examined at bedside. She is mostly off BiPAP only using it at night. She reports that her breathing is much better today compared to yesterday. She is exhibiting side effects of DuoNeb nebulization so I have change it to as needed. She denies any fever chest pain palpitations. I have spoken to her niece Praveen regarding her frequent admissions due to respiratory compromise from her COPD as well as her lung mass. According to her niece the slunk skin curer was still highly suspicious that her lung mass is cancerous despite a negative biopsy. However given her very poor lung function due to her COPD they were told that another biopsy and even treatment if it is in fact cancer will be more harmful than helpful in her case. I was able to discuss with her as well that given her degree of morbidity it is very likely that pursuing treatment for a lung cancer will not be beneficial. Jacqueline informed me that apparently the patient's is very reluctant to accept her life limiting illness which is why I think a palliative consult will be very helpful in her case. I have put in a consult for palliative. 07/29/20 Patient was seen and examined at bedside. She reports breathing much better when in bed but gets very SOB when she ambulates. She denies any chest pain, no palpitations. Appetite is good. I ordered physical therapy as she is very deconditioned. Genao catheter pulled out today. 07/30/20. Patient was seen and examined at bedside. I discussed with her the need for short-term rehab because it seems that she has been very deconditioned the past several weeks. However she does not want this and expressed her desire to go home stating that she has a good support system at home. She still gets very short of breath with minimal movement here in the hospital. I have spoken to her knees Carole and conveyed my concern of how she will do once discharge. She informed me that the patient's and son will have a meeting and decide if she can go to rehab or go home with home health. However if the patient still insist on going home her decision would still prevail since she is decisional with her care. She is back at her baseline O2 needs but she does need more oxygen when she moves about. Reason For Visit: ACUTE ON CHRONIC HYPOXIC AND HYPERCAPNIC RESPIRATO Physical Exam Vital Signs: Temp Pulse Resp BP Pulse Ox 98.1 F 97 18 154/69 H 96 07/30/20 15:33 07/30/20 19:00 07/30/20 15:33 07/30/20 15:33 07/30/20 15:33 Intake & Output 07/29/20 07/30/20 07/31/20 06:59 06:59 06:59 Intake Total 340 1205 260 Output Total 1000 400 500 Balance -660 805 -240 Weight 119.2 kg 109.6 kg General appearance: PRESENT: mild distress, obese Head exam: PRESENT: atraumatic, normocephalic Eye exam: PRESENT: EOMI, PERRLA Mouth exam: PRESENT: moist Neck exam: PRESENT: full ROM Respiratory exam: PRESENT: crackles, symmetrical, tachypnea, wheezes Cardiovascular exam: PRESENT: RRR, +S1, +S2 Pulses: PRESENT: +2 pedal pulses bilateral GI/Abdominal exam: PRESENT: normal bowel sounds, soft. ABSENT: rebound, tenderness Extremities exam: PRESENT: full ROM Musculoskeletal exam: PRESENT: full ROM Neurological exam: PRESENT: alert, awake, oriented to person, oriented to place, oriented to time, oriented to situation Psychiatric exam: PRESENT: normal mood Skin exam: PRESENT: normal color Results Laboratory Results: 07/29/20 05:32 07/30/20 06:06 07/30/20 06:06 Sodium 138.7 Potassium 4.6 Chloride 90 L Carbon Dioxide 40 H* Anion Gap 9 BUN 30 H Creatinine 1.12 Est GFR ( Amer) 58 L Glucose 83 Calcium 9.0 Total Bilirubin 0.5 AST 18 Alkaline Phosphatase 56 Total Protein 5.7 L Albumin 3.3 L 07/26/20 21:00 Troponin I 0.016 NT-Pro-B Natriuret Pep 2670 H Impressions: Chest X-Ray 07/26/20 20:01 IMPRESSION: Right pleural fluid or thickening and mild basilar atelectasis or infiltration. There is also nonspecific opacity in the left suprahilar region with some adjacent pleural tenting which could be due to scarring although underlying mass is not excluded. Additional evaluation with chest CT is recommended. copyright 2011 [employer]- All Rights Reserved Chest CT 07/27/20 00:00 IMPRESSION: 1. Masslike consolidation in the left upper lobe may be infectious/inflammatory in the appropriate clinical setting, however cannot exclude neoplasm. A follow- up CT of the chest in 4- 6 weeks is recommended to confirm complete resolution. 2. Small bilateral pleural effusions. 3. Prominent mediastinal lymph nodes may be reactive or neoplastic. These also can be re-evaluated on follow-up imaging. 4. Background moderate pulmonary emphysema. 5. Enlarged right thyroid lobe with retrosternal component. Dominant retrosternal nodule. Consider correlation with dedicated thyroid ultrasound. Assessment and Plan - Diagnosis (1) Acute and chronic respiratory failure with hypercapnia Is this a current diagnosis for this admission?: Yes Plan: Presented with shortness of breath Was hypoxic on 5 L intranasal oxygen Likely due to COPD exacerbation Currently on BiPAP at night Continue DuoNeb on prednisone 40 mg p.o. daily to complete 5 days Levaquin 750 mg p.o. daily Closely monitor respiratory parameters (2) COPD exacerbation Is this a current diagnosis for this admission?: Yes Plan: Currently present with shortness of breath and desaturation to 80% on 5 L Chest x-ray showed no previously known mass on the left perihilar area Continue breathing treatment with DuoNeb Started on prednisone 40 mg, Levaquin 750 mg daily Currently on the BiPAP and will transition to intranasal oxygen as tolerated (3) COPD (chronic obstructive pulmonary disease) Qualifiers: COPD type: COPD with acute exacerbation Qualified Code(s): J44.1 - Chronic obstructive pulmonary disease with (acute) exacerbation Is this a current diagnosis for this admission?: Yes Plan: -She has been hospitalized several times in the past few months due to acute respiratory failure -On chronic O2 support at home 2 to 4 L -COPD Gold classification D - continue inhalers and Bipap at home - (4) Chronic anemia Is this a current diagnosis for this admission?: Yes Plan: - 8.8>8.0 - Continue monitoring H&H (5) Mass of left lung Is this a current diagnosis for this admission?: Yes Plan: Has been extensively worked up Bronchoscopy report obtained ED no sign of malignancy on the biopsy Repeat CT chest masslike consolidation in the upper lobe infectious/inflammatory, small bilateral pleural effusion, prominent mediastinal lymph nodes may be reactive or neoplastic According to her niece they were told by her slunk skin curer that despite the negative biopsy the slunk skin curer is still highly suspicious that her lung mass is cancerous. However they were told that given her severe COPD it is very likely that she will ever be a candidate for any type of surgery or treatment. The niece agrees that a palliative consult will be very helpful. Continue follow-up with outpatient pulmonology (6) Physical deconditioning Is this a current diagnosis for this admission?: Yes Plan: - PT ordered -She desaturates with minimal movement as noted when he does physical therapy. And according to Carole her knees this has been the case for the past 6 to 8 weeks after she was discharged from being intubated in another hospital. I discussed with the patient as well as Carole that she would need short-term rehab however the patient did not like this idea and would prefer to go home. According to Renetta the patient's and patient's son will have a suleman mccall and decide if they agree to send her to rehab or home with home health. Given that the patient is decisional with her medical care her decision would still prevail. - Time Time Spent with patient: 25-34 minutes Medications reviewed and adjusted accordingly: Yes Anticipated Discharge Disposition: Home with Home Health Anticipated Discharge Timeframe: within 48 hours
[2020-07-30] MEDS: LEVOFLOXACIN 750 MG TABLET PO SCH (21:15)
[2020-07-31 06:57] LABS: ALBUMIN 3.3 g/dL (3.5-5.0); ALKALINE PHOSPHATASE 55 U/L (38-126); ASPARTATE AMINO TRANSFERASE 18 U/L (14-36); BILIRUBIN,DIRECT 0.2 mg/dL (0.0-0.4); BILIRUBIN,TOTAL 0.5 mg/dL (0.2-1.3); BLOOD UREA NITROGEN 29 mg/dL (7-20); CHLORIDE 91 mmol/L (98-107); GLUCOSE 90 mg/dL (75-110); POTASSIUM 4.2 mmol/L (3.6-5.0); TOTAL PROTEIN 5.6 g/dL (6.3-8.2)
[2020-07-31 07:12] LABS: ANION GAP 4 (5-19)
[2020-07-31 07:13] LABS: CARBON DIOXIDE 42 mmol/L (22-30)
[2020-07-31] MEDS ORDERED: NORMAL SALINE 1000 ML 1,000 ML IV PRN (08:11)
[2020-07-31 08:26] LABS: ABSOLUTE LYMPHOCYTES (AUTO) 0.9 10^3/uL (0.5-4.7); ABSOLUTE MONOCYTES (AUTO) 0.9 10^3/uL (0.1-1.4); ABSOLUTE NEUT (AUTO) 4.9 10^3/uL (1.7-8.2); BASOPHILS % (AUTO) 0.3 % (0-2); EOSINOPHILS % (AUTO) 0.6 % (0-6); HEMATOCRIT 26.7 % (36.0-47.0); HEMOGLOBIN 8.3 g/dL (12.0-15.5); LYMPHOCYTES % (AUTO) 13.6 % (13-45); MEAN CORPUSCULAR HEMOGLOBIN 23.8 pg (27.0-33.4); MEAN CORPUSCULAR VOLUME 77 fl (80-97); MONOCYTES % (AUTO) 12.6 % (3-13); PLATELET COUNT 207 10^3/uL (150-450); RED BLOOD COUNT 3.49 10^6/uL (3.72-5.28); RED CELL DISTRIBUTION WIDTH 16.5 % (11.5-14.0); SEGMENTED NEUTROPHILS % (AUTO) 72.9 % (42-78); TOTAL CELLS COUNTED % (AUTO) 100 %; WHITE BLOOD COUNT 6.8 10^3/uL (4.0-10.5)
[2020-07-31] MEDS ORDERED: ACETAZOLAMIDE 250 MG TABLET PO ONE (09:00)
[2020-07-31] MEDS: ENOXAPARIN SODIUM INJ 40 MG/0.4 ML DISP.SYRIN SUBCUT SCH (10:09)
[2020-07-31] MEDS: PREDNISONE 20 MG TABLET PO SCH (10:10)
[2020-07-31] MEDS: FLUTICASONE/VILANTEROL 100-25 MCG/DOSE IH SCH (10:10)
[2020-07-31] MEDS: MONTELUKAST SODIUM 10 MG TABLET PO SCH (10:10)
[2020-07-31] MEDS: POTASSIUM CHLORIDE 10 MEQ TABLET.ER PO SCH (10:10)
[2020-07-31] MEDS: HYDRALAZINE HCL 25 MG TABLET PO SCH (10:10)
[2020-07-31] MEDS: FUROSEMIDE 20 MG TABLET PO SCH (10:10)
[2020-07-31] MEDS: UMECLIDINIUM BROMIDE 62.5 MCG/DOSE IH SCH (10:10)
[2020-07-31] MEDS: FAMOTIDINE 20 MG TABLET PO SCH (10:10)
[2020-07-31] MEDS: ESCITALOPRAM OXALATE 10 MG TABLET PO SCH (10:10)
[2020-07-31] MEDS ORDERED: IRON SUCROSE COMPLEX INJ/PF 100 MG/5 ML SDV IV ONE (11:30)
[2020-07-31 12:50] VITALS: BP 170/80
--- NOTE | 2020-07-31 16:03 | PDOC DISCHARGE SUMMARY ---
Impression - Admit/DC Date/PCP Admission Date/Primary Care Provider: 07/27/20 00:41 Discharge Date: 07/31/20 - Discharge Diagnosis (1) Acute and chronic respiratory failure with hypercapnia Is this a current diagnosis for this admission?: Yes (2) COPD exacerbation Is this a current diagnosis for this admission?: Yes (3) COPD (chronic obstructive pulmonary disease) Is this a current diagnosis for this admission?: Yes (4) Chronic anemia Is this a current diagnosis for this admission?: Yes (5) Mass of left lung Is this a current diagnosis for this admission?: Yes (6) Physical deconditioning Is this a current diagnosis for this admission?: Yes - Assessment Summary: (1) Acute and chronic respiratory failure with hypercapnia Is this a current diagnosis for this admission?: Yes Plan: Presented with shortness of breath Was hypoxic on 5 L intranasal oxygen Likely due to COPD exacerbation Currently on BiPAP at night Continue DuoNeb on prednisone 40 mg p.o. daily to complete 5 days Levaquin 750 mg p.o. daily Closely monitor respiratory parameters (2) COPD exacerbation Is this a current diagnosis for this admission?: Yes Plan: Currently present with shortness of breath and desaturation to 80% on 5 L Chest x-ray showed no previously known mass on the left perihilar area Continue breathing treatment with DuoNeb Started on prednisone 40 mg, Levaquin 750 mg daily Currently on the BiPAP and will transition to intranasal oxygen as tolerated (3) COPD (chronic obstructive pulmonary disease) Qualifiers: COPD type: COPD with acute exacerbation Qualified Code(s): J44.1 - Chronic obstructive pulmonary disease with (acute) exacerbation Is this a current diagnosis for this admission?: Yes Plan: -She has been hospitalized several times in the past few months due to acute respiratory failure -On chronic O2 support at home 2 to 4 L -COPD Gold classification D - continue inhalers and Bipap at home - (4) Chronic anemia Is this a current diagnosis for this admission?: Yes Plan: - 8.8>8.0 - Continue monitoring H&H (5) Mass of left lung Is this a current diagnosis for this admission?: Yes Plan: Has been extensively worked up Bronchoscopy report obtained ED no sign of malignancy on the biopsy Repeat CT chest masslike consolidation in the upper lobe infectious/inflammatory, small bilateral pleural effusion, prominent mediastinal lymph nodes may be reactive or neoplastic According to her niece they were told by her flatbed company driver that despite the negative biopsy the flatbed company driver is still highly suspicious that her lung mass is cancerous. However they were told that given her severe COPD it is very likely that she will ever be a candidate for any type of surgery or treatment. The niece agrees that a palliative consult will be very helpful. Continue follow-up with outpatient pulmonology (6) Physical deconditioning Is this a current diagnosis for this admission?: Yes Plan: - PT ordered -She desaturates with minimal movement as noted when he does physical therapy. And according to Carole her knees this has been the case for the past 6 to 8 weeks after she was discharged from being intubated in another hospital. I discussed with the patient as well as Carole that she would need short-term rehab however the patient did not like this idea and would prefer to go home. A ccording to Renetta the patient's and patient's son will have a meeting tonight and decide if they agree to send her to rehab or home with home health. Given that the patient is decisional with her medical care her decision would still prevail. - Additional Information Resuscitation Status: Full Code Discharge Diet: As Tolerated Discharge Activity: Activity As Tolerated Referrals: [facility], [place] [Other] - 08/05/20 10:15 am Prescriptions: Levofloxacin [Levaquin 750 mg Tablet] 750 mg PO QHS 4 Days #4 tablet Home Medications: Albuterol Sulfate [Proair HFA Inhalation Aerosol 8.5 gm MDI] 2 puff IH Q4HP PRN 07/27/20 Albuterol Sulfate [Ventolin 0.083% Neb 2.5 mg/3 mL Ampul] 2.5 mg NEB RTTID 07/27/20 Budesonide [Pulmicort Neb 0.5 mg/2 ml Ampul] 0.5 mg NEB RTQ12 07/27/20 Budesonide/Formoterol Fumarate [Symbicort HFA 80-4.5 mcg Inhaler 6.9 gm] 1 puff IH BID 07/27/20 Escitalopram Oxalate [Lexapro 10 mg Tablet] 20 mg PO DAILY 07/27/20 Furosemide [Lasix 20 mg Tablet] 20 mg PO DAILY 07/27/20 Hydralazine HCl [Apresoline 25 mg Tablet] 25 mg PO BID 07/27/20 Montelukast Sodium [Singulair 10 mg Tablet] 10 mg PO DAILY 07/27/20 Potassium Chloride [Klor-Con M10] 10 meq PO DAILY 07/27/20 Tiotropium [place] [Spiriva Handihaler 5 Cap/Kit (18 Mcg/Cap)] 1 cap IH DAILY 07/27/20 Levofloxacin [Levaquin 750 mg Tablet] 750 mg PO QHS 4 Days #4 tablet 07/31/20 History of Present Illiness History of Present Illness: SHAWN GARCÍA is a 70 year old female with a history of COPD on home oxygen and left lung mass for which she has undergone extensive work-up and was told that it was negative for malignant process now presents via EMS with a 1 day duration of worsening shortness of breath. Patient also states that she has been having cough productive of yellowish sputum for the past few days. She was found to be saturating at 80% by EMS while on 5 L intranasal oxygen. She denies chest pain, dizziness, palpitation, weakness of extremities, fall, nausea, vomiting, abdominal pain or diarrhea. She denies any recent sick contact history. On arrival at ER patient was saturating around mid 80s and she was immediately placed on BiPAP after which her saturation improved to mid 90s and she was given steroid and breathing treatment. Hospital Course Hospital Course: 07/27/20 Patient was seen and examined at bedside. She was taken off BiPAP and is tolerating just being on nasal cannula at 4 L/min saturating 96%. I have instructed the nurse to lower down her oxygen to maintain saturation been 89 to 92%. Nurse station was contacted by her flatbed company driver office and requested that we do a CT chest. CT chest showed masslike consolidation in the left upper lobe which may be infectious. Cannot exclude neoplasm. Small bilateral pleural effusion. Prominent mediastinal lymph nodes may be reactive or neoplastic. He is currently receiving prednisone 40 p.o. daily, Levaquin, duo nebs for COPD exacerbation. 07/28/20 Patient was seen and examined at bedside. She is mostly off BiPAP only using it at night. She reports that her breathing is much better today compared to yesterday. She is exhibiting side effects of DuoNeb nebulization so I have change it to as needed. She denies any fever chest pain palpitations. I have spoken to her niece Praveen regarding her frequent admissions due to respiratory compromise from her COPD as well as her lung mass. According to her niece the flatbed company driver was still highly suspicious that her lung mass is cancerous despite a negative biopsy. However given her very poor lung function due to her COPD they were told that another biopsy and even treatment if it is in fact cancer will be more harmful than helpful in her case. I was able to discuss with her as well that given her degree of morbidity it is very likely that pursuing treatment for a lung cancer will not be beneficial. Jacqueline informed me that apparently the patient's is very reluctant to accept her life limiting illness which is why I think a palliative consult will be very helpful in her case. I have put in a consult for palliative. 07/29/20 Patient was seen and examined at bedside. She reports breathing much better when in bed but gets very SOB when she ambulates. She denies any chest pain, no palpitations. Appetite is good. I ordered physical therapy as she is very deconditioned. Genao catheter pulled out today. 07/30/20. Patient was seen and examined at bedside. I discussed with her the need for short-term rehab because it seems that she has been very deconditioned the past several weeks. However she does not want this and expressed her desire to go home stating that she has a good support system at home. She still gets very short of breath with minimal movement here in the hospital. I have spoken to her knees Carole and conveyed my concern of how she will do once discharge. She informed me that the patient's and son will have a meeting and decide if she can go to rehab or go home with home health. However if the patient still insist on going home her decision would still prevail since she is decisional with her care. She is back at her baseline O2 needs but she does need more oxygen when she moves about. Physical Exam Vital Signs: Temp Pulse Resp BP Pulse Ox 98.1 F 92 20 170/80 H 100 07/31/20 12:48 07/31/20 12:48 07/31/20 12:48 07/31/20 12:48 07/31/20 12:48 Intake & Output 07/30/20 07/31/20 08/01/20 06:59 06:59 06:59 Intake Total 1205 704 260 Output Total 400 500 600 Balance 805 204 -340 Weight 109.6 kg 118.6 kg General appearance: PRESENT: cooperative, mild distress Head exam: PRESENT: atraumatic, normocephalic Eye exam: PRESENT: EOMI, PERRLA Mouth exam: PRESENT: moist Neck exam: PRESENT: full ROM Respiratory exam: PRESENT: rales, symmetrical, unlabored, wheezes Cardiovascular exam: PRESENT: RRR, +S1, +S2 Pulses: PRESENT: +2 pedal pulses bilateral GI/Abdominal exam: PRESENT: normal bowel sounds, soft. ABSENT: rebound, tenderness Extremities exam: PRESENT: full ROM Musculoskeletal exam: PRESENT: full ROM Neurological exam: PRESENT: alert, awake, oriented to person, oriented to place, oriented to time, oriented to situation Psychiatric exam: PRESENT: normal mood Skin exam: PRESENT: normal color Results Laboratory Results: WBC 6.8 10^3/uL (4.0-10.5) 07/31/20 05:35 RBC 3.49 10^6/uL (3.72-5.28) L 07/31/20 05:35 Hgb 8.3 g/dL (12.0-15.5) L 07/31/20 05:35 Hct 26.7 % (36.0-47.0) L 07/31/20 05:35 MCV 77 fl (80-97) L 07/31/20 05:35 MCH 23.8 pg (27.0-33.4) L 07/31/20 05:35 MCHC 31.0 g/dL (32.0-36.0) L 07/31/20 05:35 RDW 16.5 % (11.5-14.0) H 07/31/20 05:35 Plt Count 207 10^3/uL (150-450) 07/31/20 05:35 Lymph % (Auto) 13.6 % (13-45) 07/31/20 05:35 Keith % (Auto) 12.6 % (3-13) 07/31/20 05:35 Eos % (Auto) 0.6 % (0-6) 07/31/20 05:35 Baso % (Auto) 0.3 % (0-2) 07/31/20 05:35 Absolute Neuts (auto) 4.9 10^3/uL (1.7-8.2) 07/31/20 05:35 Absolute Lymphs (auto) 0.9 10^3/uL (0.5-4.7) 07/31/20 05:35 Absolute Monos (auto) 0.9 10^3/uL (0.1-1.4) 07/31/20 05:35 Absolute Eos (auto) 0.0 10^3/uL (0.0-0.6) 07/31/20 05:35 Absolute Basos (auto) 0.0 10^3/uL (0.0-0.2) 07/31/20 05:35 Total Counted 100 07/26/20 21:00 Seg Neutrophils % 72.9 % (42-78) 07/31/20 05:35 Seg Neuts % (Manual) 95 % (42-78) H 07/26/20 21:00 Lymphocytes % (Manual) 3 % (13-45) L 07/26/20 21:00 Monocytes % (Manual) 2 % (3-13) L 07/26/20 21:00 Eosinophils % (Manual) 0 % (0-6) 07/26/20 21:00 Basophils % (Manual) 0 % (0-2) 07/26/20 21:00 Abs Neuts (Manual) 12.5 10^3/uL (1.7-8.2) H 07/26/20 21:00 Abs Lymphs (Manual) 0.4 10^3/uL (0.5-4.7) L 07/26/20 21:00 Abs Monocytes (Manual) 0.3 10^3/uL (0.1-1.4) 07/26/20 21:00 Absolute Eos (Manual) 0.0 10^3/uL (0.0-0.6) 07/26/20 21:00 Abs Basophils (Manual) 0.0 10^3/uL (0.0-0.2) 07/26/20 21:00 Platelet Comment ADEQUATE 07/26/20 21:00 Hypochromasia SLIGHT 07/26/20 21:00 Poikilocytosis SLIGHT 07/26/20 21:00 Anisocytosis SLIGHT 07/26/20 21:00 Microcytosis SLIGHT 07/26/20 21:00 Ovalocytes SLIGHT 07/26/20 21:00 Carbonic Acid 2.10 mmol/L (1.05-1.35) H 07/28/20 06:15 HCO3/H2CO3 Ratio 19:1 07/28/20 06:15 ABG pH 7.38 (7.35-7.45) 07/28/20 06:15 ABG pCO2 69.9 mmHg (35-45) H* 07/28/20 06:15 ABG pO2 163.2 mmHg (80-100) H 07/28/20 06:15 ABG HCO3 40.6 mmol/L (20-24) H 07/28/20 06:15 ABG Total CO2 42.8 mmol/L (21-25) H 07/28/20 06:15 ABG O2 Saturation 99.0 % (94-98) H 07/28/20 06:15 ABG Base Excess 12.9 mmol/L 07/28/20 06:15 VBG pH 7.25 (7.30-7.42) L 07/26/20 23:35 VBG pCO2 84.1 mmHg (35-63) H* 07/26/20 23:35 VBG HCO3 36.2 mmol/L (20-32) H 07/26/20 23:35 VBG Base Excess 7.3 mmol/L 07/26/20 23:35 FiO2 40% 07/28/20 06:15 Sodium 137.4 mmol/L (137-145) 07/31/20 05:35 Potassium 4.2 mmol/L (3.6-5.0) 07/31/20 05:35 Chloride 91 mmol/L (98-107) L 07/31/20 05:35 Carbon Dioxide 42 mmol/L (22-30) H* 07/31/20 05:35 Anion Gap 4 (5-19) L 07/31/20 05:35 BUN 29 mg/dL (7-20) H 07/31/20 05:35 Creatinine 1.26 mg/dL (0.52-1.25) H 07/31/20 05:35 Est GFR ( Amer) 51 (>60) L 07/31/20 05:35 Est GFR (MDRD) Non-Af 42 (>60) L 07/31/20 05:35 Glucose 90 mg/dL (75-110) 07/31/20 05:35 Calcium 9.0 mg/dL (8.4-10.2) 07/31/20 05:35 Phosphorus 4.6 mg/dL (2.5-4.5) H 07/26/20 21:00 Magnesium 2.3 mg/dL (1.6-2.3) 07/26/20 21:00 Total Bilirubin 0.5 mg/dL (0.2-1.3) 07/31/20 05:35 Direct Bilirubin 0.2 mg/dL (0.0-0.4) 07/31/20 05:35 Neonat Total Bilirubin Not Reportable 07/31/20 05:35 Neonat Direct Bilirubin Not Reportable 07/31/20 05:35 Neonat Indirect Bili Not Reportable 07/31/20 05:35 AST 18 U/L (14-36) 07/31/20 05:35 ALT 9 U/L (<35) 07/31/20 05:35 Alkaline Phosphatase 55 U/L (38-126) 07/31/20 05:35 Troponin I 0.016 ng/mL 07/26/20 21:00 NT-Pro-B Natriuret Pep 2670 pg/mL (<125) H 07/26/20 21:00 Total Protein 5.6 g/dL (6.3-8.2) L 07/31/20 05:35 Albumin 3.3 g/dL (3.5-5.0) L 07/31/20 05:35 Urine Color YELLOW 07/26/20 22:01 Urine Appearance SLIGHTLY-CLOUDY 07/26/20 22:01 Urine pH 5.0 (5.0-9.0) 07/26/20 22:01 Ur Specific [place] 1.010 07/26/20 22:01 Urine Protein NEGATIVE mg/dL (NEGATIVE) 07/26/20 22:01 Urine Glucose (UA) NEGATIVE mg/dL (NEGATIVE) 07/26/20 22:01 Urine Ketones NEGATIVE mg/dL (NEGATIVE) 07/26/20 22: Urine Blood NEGATIVE (NEGATIVE) 07/26/20 22:01 Urine Nitrite NEGATIVE (NEGATIVE) 07/26/20 22:01 Urine Bilirubin NEGATIVE (NEGATIVE) 07/26/20 22:01 Urine Urobilinogen NEGATIVE mg/dL (<2.0) 07/26/20 22:01 Ur Leukocyte Esterase NEGATIVE (NEGATIVE) 07/26/20 22:01 Urine WBC (Auto) 0 /HPF 07/26/20 22:01 Urine RBC (Auto) 0 /HPF 07/26/20 22:01 U Hyaline Cast (Auto) 23 /LPF 07/26/20 22:01 Urine Bacteria (Auto) TRACE /HPF 07/26/20 22:01 Squamous Epi Cells Auto <1 /HPF 07/26/20 22:01 Urine Mucus (Auto) OCC /LPF 07/26/20 22:01 Urine Ascorbic Acid NEGATIVE (NEGATIVE) 07/26/20 22:01 07/26/20 21:00 Troponin I 0.016 NT-Pro-B Natriuret Pep 2670 H Impressions: Chest X-Ray 07/26/20 20:01 IMPRESSION: Right pleural fluid or thickening and mild basilar atelectasis or infiltration. There is also nonspecific opacity in the left suprahilar region with some adjacent pleural tenting which could be due to scarring although underlying mass is not excluded. Additional evaluation with chest CT is recommended. copyright 2011 [employer]- All Rights Reserved Chest CT 07/27/20 00:00 IMPRESSION: 1. Masslike consolidation in the left upper lobe may be infectious/inflammatory in the appropriate clinical setting, however cannot exclude neoplasm. A follow- up CT of the chest in 4- 6 weeks is recommended to confirm complete resolution. 2. Small bilateral pleural effusions. 3. Prominent mediastinal lymph nodes may be reactive or neoplastic. These also can be re-evaluated on follow-up imaging. 4. Background moderate pulmonary emphysema. 5. Enlarged right thyroid lobe with retrosternal component. Dominant retrosternal nodule. Consider correlation with dedicated thyroid ultrasound. Plan Plan of Treatment: I have talked to the patient extensively about the need for rehab because according to her knees and our assessment here in the hospital she is very deconditioned and easily becomes hypoxic when she moves about. However she continues to refuse rehab and would really prefer to go home. I advised her to follow-up with her lung doctor regarding her lung mass. Time Spent: Greater than 30 Minutes Stroke Is this a Stroke Patient?: No Acute Heart Failure Is this a Heart Failure Patient?: No
== END 2020-07-31 14:15 | disposition home health service (06) | DRG 189 ==
LOC: ER 19:49 → EH 07-27 00:41 → 3S 07-27 03:45
PROVIDERS: ADMIT Student in an Organized Health Care Education/Training Program; ATTEND Internal Medicine
PROC: 5A09557 Assistance with Respiratory Ventilation, Greater than 96 Consecutive Hours, Continuous Positive Airway Pressure (ICD-10-PCS; principal; 2020-07-27)
DX: J96.22 Acute and chronic respiratory failure with hypercapnia (principal); J44.1 Chronic obstructive pulmonary disease with (acute) exacerbation; Z99.81 Dependence on supplemental oxygen; I50.9 Heart failure, unspecified; D64.9 Anemia, unspecified; R91.8 Other nonspecific abnormal finding of lung field; Z79.51 Long term (current) use of inhaled steroids
CPT/HCPCS: 36415; 51702; 71045; 71260; 80053; 81001; 82803; 83735; 83880; 84100; 84484; 85025; 93005; 93010; 94660; 96374; 99285; J1650; J1756; J1940; J2060; J3490; J7030; J7120; J7512